=== PATIENT | female | born 1940 | race Caucasian/White ===

== ENCOUNTER 2017-08-12 19:17 | Emergency (ER) | payer MEDICARE, OTHER ==
[~2017-08-12] VITALS: Ht 152.4 cm; Wt 66.0 kg
[~2017-08-12 19:17] MED LIST: ACIDOPHILU4 PO; ALLEGRA180 MG PO; AMITIZA24 MCG PO; APAP/HYDRO325 MG/10 PO; ASPIRIN ADULT L81 MG PO; ASPIRIN CHEWABL81 MG PO; ATENOLOL25 MG PO; BYSTOLIC5 MG PO; CARDURA4 MG PO; CARVEDILOL12.5 MG PO; CIPROFLOXACN500 MG PO; CO-Q 101 CAP PO; CUBICIN500 MG IV; CYANOCOBALAM1000 MCG IM; DEPO-TESTOS200 MG/M1 INT; DIFLUCAN100 MG PO; DIFLUCAN150 MG PO; DIGOXIN0.25 MG PO; FERR SULFATE325 MG PO; FERRAPLUS 90 PO; FERROUS SULF325 M1 PO; FLUARIX QUADRIV1 IN2 IM; FOLIC ACID1 MG PO; GABAPENTIN100 MG PO; GABAPENTIN400 M2 PO; GNP RED YEAST RICE PO; HYDROCO/APAP1 TA8 PO; LORTAB 1010 MG PO; LORTAB 5/3255 MG PO; LOSARTAN POT100 MG PO; MAXIDE1 COMBO PO; MAXZIDE-2537.5 MG/TA PO; MIRAPEX0.25 MG PO; MIRAPEX0.75 MG OR; MIRAPEX0.75 MG PO; MONISTAT1 VA; OXYBUTYNIN5 MG PO; PERCOCET1 TA4 PO; PREVACID30 M1 PO; PREVACID30 M2 PO; PRISTIQ50 MG PO; RAMIPRIL2.5 MG PO; SAVELLA50 MG PO; VENLAFAXINE150 M1 OR; VITAMIN B-121000 MCG SC; VITAMIN D-32000 UNI1 PO; ZANAFLEX4 MG PO; [UNRECOGNIZED DRUG - OTHER] PO
[2017-08-12 20:14] LABS: HEMATOCRIT 42.9 % (37.0-47.0); HEMOGLOBIN 14.5 g/dl (12.0-16.0); IMMATURE GRANULOCYTES 0.4 % (0.0-1.0); MEAN CELL VOLUME 93.9 fL CALC (80.0-100.0); MEAN CORPUSCULAR HGB 31.7 pG CALC (26.0-32.0); MEAN CORPUSCULAR HGB CONC 33.8 g/L CALC (32.0-36.0); NEUT# 4.68 thou/uL (2.00-7.15); RED BLOOD COUNT 4.57 mill/uL (4.20-5.60); RED CELL DISTRI WIDTH 13.8 % (11.5-15.5)
[2017-08-12 20:30] LABS: ALBUMIN 4.7 g/dL (3.2-5.0); ANION GAP 19 (6-22 (CALC)); BILIRUBIN, TOTAL 0.6 mg/dL (0.0-1.4); BUN 18 mg/dL (8-23); BUN/CREATININE RATIO 27 (12-20 (CALC)); CARBON DIOXIDE 27 mmol/l (22-30); CHLORIDE 96 mmol/l (95-108); CREATININE 0.7 mg/dL (0.5-1.0); GFR > 60 ML/MIN (>=60 (CALC)); GFR FOR AFR.AMER. > 60 ML/MIN (>=60 (CALC)); POTASSIUM 4.5 mmol/l (3.5-5.1); SGOT/AST 33 u/l (9-36); SGPT/ALT 29 u/l (11-66); SODIUM 138 mmol/l (137-146); TOTAL PROTEIN 7.7 g/dL (6.3-8.2)
[2017-08-12] MEDS ORDERED: AMLODIPINE5 MG PO (20:30)
[2017-08-12 20:31] LABS: ALKALINE PHOSPHATASE 159 u/l (38-126)
[2017-08-12] MEDS ORDERED: ASPIRIN81 MG PO (20:31)
[2017-08-12] MEDS ORDERED: METO25TAB PO (20:52)
[2017-08-12] MEDS ORDERED: PLAVIX75 MG PO (20:52)
[2017-08-12 20:56] VITALS: BP 155/70
[2017-08-12 21:26] LABS: ACT PARTIAL THROMBO TIME 30.1 SECONDS (20.0-32.5); INTERNATIONAL NORMALIZED RATIO 0.9 RATIO (0.7-1.3); PROTHROMBIN TIME 9.7 SECONDS (9.0-12.5)
== END 2017-08-12 22:03 ==
LOC: ED 19:17
PROVIDERS: Family Medicine
DX: G45.9 Transient cerebral ischemic attack, unspecified (principal); R20.2 Paresthesia of skin; R22.0 Localized swelling, mass and lump, head; I10 Essential (primary) hypertension; T50.905A Adverse effect of unspecified drugs, medicaments and biological substances, initial encounter; Y92.099 Unspecified place in other non-institutional residence as the place of occurrence of the external cause; Z86.73 Personal history of transient ischemic attack (TIA), and cerebral infarction without residual deficits